=== PATIENT | male | born 1970 | race Caucasian/White ===

== ENCOUNTER 2020-10-02 20:52 | Inpatient (IN) | payer BC, SELFPAY ==
[2020-10-02 20:58] VITALS: BP 137/97; PULSE 80; RESP 18; O2SAT 98; BMI 35.7
[2020-10-02 21:33] LABS: Basophils % 0.5 %; Eosinophils # 0.3 10^3/uL (0.0-0.8); Eosinophils % 4.5 %; Hematocrit 46.2 % (42.0-52.0); Hemoglobin 16.1 g/dL (11.7-16.6); Lymphocytes # 2.3 10^3/uL (0.8-4.8); Lymphocytes % 35.2 %; Mean Corpuscular HGB Conc 34.8 g/dL (30.0-36.0); Mean Corpuscular Hemoglobin 31.1 pg (28.0-34.0); Mean Corpuscular Volume 89.2 fL (80-94); Mean Platelet Volume 10.3 fL (7.4-10.4); Monocytes # 0.6 10^3/uL (0.2-0.9); Neutrophils # 3.27 10^3/uL (1.8-7.7); Neutrophils % 50.5 %; Nucleated Red Blood Cells % 0 %; Platelet Count 207 10^3/cmm (130-400); Red Blood Count 5.18 10^6/uL (4.1-5.3); White Blood Count 6.5 10^3/uL (4.0-10.0)
[2020-10-02 21:55] LABS: Alanine Aminotransferase 34 U/L (0-41); Albumin Level 4.7 g/dL (3.5-5.2); Alcohol Level 173 mg/dL (0-10); Alkaline Phosphatase 62 IU/L (40-130); Aspartate Amino Transferase 26 U/L (0-40); Blood Urea Nitrogen 17 mg/dL (6-20); Calcium 9.2 mg/dL (8.5-10.5); Carbon Dioxide 23 mmol/L (22-29); Chloride 103 mmol/L (98-107); Globulin 2.5 g/dL (1.3-4.6); Glomerular Filtration Rate 90.1 mL/min (90-130); Glucose 113 mg/dL (65-115); Osmolality Calculated 288 mOsm/kg (285-295); Sodium 138 mmol/L (136-145); Total Bilirubin 0.4 mg/dL (0.15-1.2); Total Protein 7.2 g/dL (6.6-8.7)
[2020-10-02 21:56] LABS: Acetaminophen < 5.0 ug/mL (10-30); Salicylate < 0.3 mg/dL (3-10)
[2020-10-02 22:14] LABS: Add Urine Microscopic? YES; Bacteria Urine TRACE /hpf; Bilirubin Urine Neg (Negative); Blood Urine 2+ (Negative); Glucose Urine UA Norm (Normal); Ketones Urine Negative (Negative); Leukocyte Esterase Urine Negative (Negative); Nitrate Urine Negative (Negative); Protein Urine Neg (Negative); RBC Urine 0-4 /hpf (0-2); Squamous Epithelial Cell Urine 0-4 /hpf (0-5); Urine Appearance Clear (CLEAR); Urine Color Yellow (Yellow); Urobilinogen Urine Norm (Negative); WBC Urine 0-4 /hpf (0-5); pH Urine 5 (5-7)
[2020-10-02 22:18] LABS: Amphetamines Screen Urine Negative (Negative); Barbiturates Screen Urine Negative (Negative); Benzodiazepines Screen Urine Negative (Negative); Cocaine Screen Urine Negative (Negative); Opiate Screen Urine Negative (Negative); PCP Screen Urine Negative (Negative); THC Screen Urine Negative (Negative)
[2020-10-02 23:04] VITALS: BP 147/87; PULSE 71; RESP 18; TEMP 36.6; O2SAT 96
[2020-10-02 23:12] VITALS: BP 150/80; PULSE 76; RESP 16; TEMP 36.6; O2SAT 99
--- NOTE | 2020-10-02 23:16 | PC.NURSE ---
PM Assessment Pt arrived to Unit on 96 hr hold. Came to ED this evening after drinking, BAL was 173. UDS is neg. Report stated Pt is SI- got drunk, was waving a gun around stating he was going to shoot himself Pt is calm and cooperative on admission to unit.
[2020-10-02] MEDS: lisinopril 20 mg Tablet PO (23:48)
[2020-10-02] MEDS: ibuprofen 800 mg tablet PO (23:48)
[2020-10-02] MEDS: atorvastatin 40 mg Tablet 80 MG PO (23:49)
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
[2020-10-03] MEDS: hyDROXYzine 25 mg Capsule 50 MG PO (01:10)
[2020-10-03] MEDS: metformin XR 500 MG Tablet PO ×2 (01:11→20:19)
[2020-10-03] MEDS: trazodone 50 mg Tablet PO ×2 (01:11→20:19)
--- NOTE | 2020-10-03 01:23 | PC.NURSE ---
Addendum entered by Keri Gutiérrez RN 10/03/20 02:00: FOLLOW UP OF PRN'S MOTRIN- DECREASED PAIN LEVEL, PT ABLE TO REST TRAZODONE- ENABLED PT TO SLEEP VISTERIL-EFFECTIVE, PT RESTING SOUNDLY. Original Note: PRN'S Given 2348 administered Motrin 800mg for a headache 7/10 on pain scale, will continue to monitor pt until end of shift. 0111 administered Trazodone 50mg for a sleeping aid, will continue to monitor pt until end of shift. 0110 administered Vistaril 50mg for anxiety, will continue to monitor pt until end of shift.
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
[2020-10-03 06:00] VITALS: BP 95/58; PULSE 67; RESP 18; TEMP 36.7; O2SAT 96
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
[2020-10-03] MEDS: ibuprofen 800 mg tablet PO ×3 (09:13→20:21)
[2020-10-03] MEDS: multivitamin therapeutic Tablet 1 TAB PO (09:13)
[2020-10-03] MEDS: PARoxetine 20 mg Tablet PO (09:13)
[2020-10-03] MEDS: buPROPion XL (24 HR) 300 mg Tablet PO (09:13)
[2020-10-03] MEDS: folic acid 1 mg Tablet PO (09:13)
[2020-10-03] MEDS: amlodipine 5 mg Tablet 2.5 MG PO (09:14)
[2020-10-03] MEDS: thiamine 100 mg Tablet PO (09:14)
[2020-10-03 14:00] VITALS: BP 99/55; PULSE 73; RESP 17; TEMP 37.1; O2SAT 96
[2020-10-03] MEDS: nicotine 2 mg Gum BUCCAL ×3 (14:54→20:58)
[2020-10-03 19:25] VITALS: BP 103/56; PULSE 80; RESP 17; TEMP 36.5; O2SAT 96
[2020-10-03] MEDS: atorvastatin 40 mg Tablet 80 MG PO (20:20)
[2020-10-03] MEDS: lisinopril 20 mg Tablet PO (20:20)
--- NOTE | 2020-10-03 21:25 | PC.NURSE ---
Addendum entered by Kerry Watts LPN 10/03/20 22:12: pt stated that he is tired and will be going to bed soon Original Note: PRN 2019 administered Trazodone 50mg PO for a sleeping aid, will continue to monitor pt until end of shift.
[2020-10-04 06:00] VITALS: BP 114/50; PULSE 72; RESP 16; TEMP 36.6; O2SAT 98
[2020-10-04] MEDS: ibuprofen 800 mg tablet PO ×3 (09:01→20:25)
[2020-10-04] MEDS: nicotine 21 mg Patch 1 PATCH TRANSDERMA (09:01)
[2020-10-04] MEDS: multivitamin therapeutic Tablet 1 TAB PO (09:01)
[2020-10-04] MEDS: folic acid 1 mg Tablet PO (09:01)
[2020-10-04] MEDS: buPROPion XL (24 HR) 300 mg Tablet PO (09:01)
[2020-10-04] MEDS: PARoxetine 20 mg Tablet PO (09:01)
[2020-10-04] MEDS: thiamine 100 mg Tablet PO (09:01)
[2020-10-04] MEDS: amlodipine 5 mg Tablet 2.5 MG PO (09:01)
--- NOTE | 2020-10-04 11:56 | P.PN_ITS ---
Subjective NPU Subjective: Interval history: Justo presents today reporting that he is getting clarity with me today and has been more able to converse about the impact of his drinking on his life. We discussed the steps he has to take to be able to regain his 's confidence and to get control of his circumstances. We discussed getting collateral information tomorrow as well as managing safety including him identifying someone that can take his gun/guns at least for a little while while he is getting back on track. We discussed discharge in the next 48 hours. Mental Status Exam MSE Comments: This is an obese white male with hospital scrubs on with adequate grooming and eye contact. No abnormal movements. Cooperative with exam in no acute distress. Speech was more normal rate and volume. Mood described as a little better, affect congruent. Thought process organized. Thought content: Patient denied suicidal or homicidal ideation, there were no delusions reported noted, he denied any auditory or visual hallucinations. Attention and concentration were intact and memory appeared reliable but none were formally tested. Alert and oriented x3. Insight and judgment is limited, but improving, impulse control is limited, but improving. Vitals/I&O/Wt Last Vital Signs Temp 97.9 F 10/04/20 06:00 Pulse 72 10/04/20 06:00 Resp 16 10/04/20 06:00 BP 114/50 10/04/20 06:00 Pulse Ox 98 10/04/20 06:00 Weight last 48 hrs Weight 106.594 kg Data NPU : 10/02/20 21:25 10/02/20 21:25 A&P Additional A&P Information (1) Suicidal ideation: (2) Depression: (3) Alcohol dependence: (4) Partner relational problem: Additional A&P Information This is a 50-year-old white male with a long history of addiction and mental health issues with active alcohol dependence who presents with a 96-hour hold after reportedly endorsing suicidal thoughts in the family. 1. Continue current medication. We will increase Paxil to 30 mg p.o. every morning and initiate naltrexone with a possible plan for Vivitrol injection. 2. Continue every 15 minute checks for safety. 3. Encourage individual, group and milieu therapies. 4. Encourage sober living treatment after discharge at the highest level of care to which he is willing to commit. 5. We will evaluate for safety for discharge given 96-hour hold. Involuntary Hold Information 96 Hour Hold: 96 Hour Involuntary Admission: Yes 96 Hour Hold Ending Date: 10/09/20 96 Hour Hold Ending Time: 21:20 Attestations NPU Medical Necessity Statement*: Inpatient hospitalization is medically necessary and the clinically appropriate intervention at this time. We will monitor medications and make changes as indicated. Likely length of stay 1-3 days. Coding Level of Care Code Acute Home Care Nurse for Martina Farah
[2020-10-04 14:00] VITALS: BP 153/78; PULSE 103; RESP 17; TEMP 37.1; O2SAT 93
[2020-10-04 20:10] LABS: Glucose Point of Care 236 mg/dL (70-110)
[2020-10-04 20:13] VITALS: BP 126/82; PULSE 101; RESP 18; TEMP 37.1; O2SAT 94
[2020-10-04] MEDS: metformin XR 500 MG Tablet PO (20:25)
[2020-10-04] MEDS: atorvastatin 40 mg Tablet 80 MG PO (20:25)
[2020-10-04] MEDS: lisinopril 20 mg Tablet PO (20:25)
[2020-10-04] MEDS: nicotine 2 mg Gum BUCCAL (22:00)
[2020-10-05 06:00] VITALS: BP 121/63; PULSE 82; RESP 14; TEMP 37.1; O2SAT 97
[2020-10-05 06:28] LABS: Glucose Point of Care 155 mg/dL (70-110)
[2020-10-05] MEDS: nicotine 21 mg Patch 1 PATCH TRANSDERMA (07:45)
[2020-10-05] MEDS: ibuprofen 800 mg tablet PO ×3 (08:44→19:41)
[2020-10-05] MEDS: multivitamin therapeutic Tablet 1 TAB PO (08:44)
[2020-10-05] MEDS: folic acid 1 mg Tablet PO (08:44)
[2020-10-05] MEDS: thiamine 100 mg Tablet PO (08:44)
[2020-10-05] MEDS: amlodipine 5 mg Tablet 2.5 MG PO (08:45)
[2020-10-05] MEDS: buPROPion XL (24 HR) 300 mg Tablet PO (08:45)
[2020-10-05] MEDS: PARoxetine 20 mg Tablet 30 MG PO (08:45)
[2020-10-05 11:21] LABS: Glucose Point of Care 146 mg/dL (70-110)
--- NOTE | 2020-10-05 11:33 | P.PN_ITS ---
Subjective NPU Subjective: Interval history: Justo presented today reporting that he has talked to his now and that his short conversations which were fairly anxiety provoking. He continues to be very focused on his sobriety and doing what it takes to repair his relationship. He reports that he is open to an inpatient facility and he is working with the social work team to determine what is available. We discussed discharge in the next 24 to 48 hours as well as the FMLA process. Mental Status Exam MSE Comments: This is an obese white male with hospital scrubs on with adequate grooming and eye contact. No abnormal movements. Cooperative with exam in no acute distress. Speech was more normal rate and volume. Mood described as better but anxious, affect congruent. Thought process organized. Thought content: Patient denied suicidal or homicidal ideation, there were no delusions reported noted, he denied any auditory or visual hallucinations. Attention and concentration were intact and memory appeared reliable but none were formally tested. Alert and oriented x3. Insight and judgment is improving, impulse control is limited, but improving. Vitals/I&O/Wt Last Vital Signs Temp 98.7 F 10/05/20 06:00 Pulse 82 10/05/20 06:00 Resp 14 10/05/20 06:00 BP 121/63 10/05/20 06:00 Pulse Ox 97 10/05/20 06:00 Data NPU : 10/02/20 21:25 10/02/20 21:25 A&P Additional A&P Information (1) Suicidal ideation: (2) Depression: (3) Alcohol dependence: (4) Partner relational problem: Additional A&P Information This is a 50-year-old white male with a long history of addiction and mental health issues with active alcohol dependence who presents with a 96-hour hold after reportedly endorsing suicidal thoughts in the family. 1. Continue current medication. Will discharge on naltrexone. 2. Continue every 15 minute checks for safety. 3. Encourage individual, group and milieu therapies. 4. Encourage sober living treatment after discharge at the highest level of care to which he is willing to commit. 5. We will evaluate for safety for discharge given 96-hour hold. Involuntary Hold Information 96 Hour Hold: 96 Hour Involuntary Admission: Yes 96 Hour Hold Ending Date: 10/09/20 96 Hour Hold Ending Time: 21:20 Attestations NPU Medical Necessity Statement*: Inpatient hospitalization is medically necessary and the clinically appropriate intervention at this time. We will monitor medications and make changes as indicated. Likely length of stay 1-2 days. Coding Level of Care Code Acute Cheesemaking Laborer for Martina Farah
[2020-10-05 14:00] VITALS: BP 121/63; PULSE 82; RESP 14; TEMP 37.1; O2SAT 97
[2020-10-05 16:11] LABS: Glucose Point of Care 122 mg/dL (70-110)
[2020-10-05 19:22] LABS: Glucose Point of Care 205 mg/dL (70-110)
[2020-10-05 19:36] VITALS: BP 123/74; PULSE 93; RESP 21; TEMP 36.7; O2SAT 94
[2020-10-05] MEDS: atorvastatin 40 mg Tablet 80 MG PO (19:40)
[2020-10-05] MEDS: metformin XR 500 MG Tablet PO (19:40)
[2020-10-05] MEDS: lisinopril 20 mg Tablet PO (19:41)
[2020-10-05] MEDS: nicotine 2 mg Gum BUCCAL (20:00)
[2020-10-06 06:00] VITALS: BP 106/63; PULSE 67; RESP 18; TEMP 36.8; O2SAT 95
[2020-10-06 06:12] LABS: Glucose Point of Care 137 mg/dL (70-110)
[2020-10-06] MEDS: nicotine 2 mg Gum BUCCAL (06:33)
[2020-10-06] MEDS: PARoxetine 20 mg Tablet 30 MG PO (08:32)
[2020-10-06] MEDS: folic acid 1 mg Tablet PO (08:32)
[2020-10-06] MEDS: multivitamin therapeutic Tablet 1 TAB PO (08:32)
[2020-10-06] MEDS: buPROPion XL (24 HR) 300 mg Tablet PO (08:32)
[2020-10-06] MEDS: thiamine 100 mg Tablet PO (08:32)
[2020-10-06] MEDS: amlodipine 5 mg Tablet 2.5 MG PO (08:32)
[2020-10-06] MEDS: ibuprofen 800 mg tablet PO (08:32)
[2020-10-06] MEDS: nicotine 21 mg Patch 1 PATCH TRANSDERMA (10:57)
[2020-10-06 11:04] LABS: Glucose Point of Care 138 mg/dL (70-110)
[2020-10-06 13:22] VITALS: BP 132/79; PULSE 83; RESP 17; TEMP 36.7; O2SAT 97
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
[2020-10-06 14:16] VITALS: BP 132/79; PULSE 83; RESP 17; TEMP 36.7; O2SAT 97
== END 2020-10-06 14:34 | disposition home or self-care (01) | DRG 881 ==
LOC: ER 21:41 → NP 22:40
PROVIDERS: Admitting Provider Psychiatry & Neurology Psychiatry; Emergency Provider Family Medicine; PCP Family Medicine; Visit Provider Psychiatry & Neurology Psychiatry
DX: F32.9 Major depressive disorder, single episode, unspecified (principal); R45.851 Suicidal ideations; F10.229 Alcohol dependence with intoxication, unspecified; F41.9 Anxiety disorder, unspecified; F17.220 Nicotine dependence, chewing tobacco, uncomplicated; I10 Essential (primary) hypertension; E11.9 Type 2 diabetes mellitus without complications; Z79.84 Long term (current) use of oral hypoglycemic drugs; Z63.0 Problems in relationship with spouse or partner
CPT/HCPCS: 36416; 80053; 80306; 80307; 81001; 82962; 85025; 96372; 99285; J1815; J3411

== ENCOUNTER 2021-02-20 21:18 | Emergency (ER) | payer BC, SELFPAY ==
[2021-02-20 21:34] VITALS: BP 132/78; PULSE 70; RESP 18; TEMP 36.6; O2SAT 96; BMI 38.0
[2021-02-20 22:02] LABS: Hemoglobin 15.3 g/dL (11.7-16.6); Mean Corpuscular HGB Conc 34.8 g/dL (30.0-36.0); Mean Corpuscular Hemoglobin 30.5 pg (28.0-34.0); Mean Corpuscular Volume 87.6 fl (80-94); Mean Platelet Volume 10.6 fL (7.4-10.4); Platelet Count 167 10^3/cmm (130-400); Red Blood Count 5.02 10^6/uL (4.1-5.3); Red Cell Distribution Width 12.3 % (12.1-15.1); White Blood Count 6.3 10^3/uL (4.0-10.0)
--- NOTE | 2021-02-20 22:07 | ED_ITS ---
HPI - Abdominal Pain General: Chief Complaint: Abdominal Pain Stated Complaint: Lower L Side Stabbing Pain Time Seen by Provider: 02/20/21 21:49 Source: patient Mode of arrival: ambulatory Limitations: no limitations History of Present Illness: HPI narrative: 50-year-old male states he has been having left lower quadrant abdominal pain over the last 6 months. States its been worsening and his pain is currently a 5 out of 10. He denies any worsening improving factors. He states that he saw his PCP and was told it could be gas he is not had any imaging. Denies any fever. Denies any dysuria. Denies any vomiting or diarrhea. Associated Symptoms: Denies chills, dysuria and fever(s) Review of Systems Const: Denies: fever(s), chills, body aches or change in appetite Eyes: Denies: blurry vision or eye discomfort ENMT: Denies: throat pain or dental pain Card: Denies: chest pain Resp: Denies: dyspnea GI: Reports: abdominal pain : Denies: dysuria Musc: Denies: neck pain or back pain Skin/Breast: Denies: rash Neuro: Denies: headache(s) Psych: Denies: depression Chivo/Lymph: Denies: easy bruising All/Imm: Denies: urticaria Physical Exam Const: COMMON NORMALS: no acute distress, patient oriented x3 and healthy appearing HENMT: COMMON NORMALS: normocephalic and atraumatic HEAD & SCALP: normocephalic and atraumatic Eye: COMMON NORMALS: Equal, round and reactive pupils present and EOMs intact bilaterally PUPIL: Yes Equal, round and reactive pupils present Neck/C-Spine: COMMON NORMALS: full ROM and supple Chest: COMMONS NORMALS: normal inspection of the chest and normal palpation of entire chest wall Resp: COMMON NORMALS: normal respiratory effort, No retractions, No use of accessory muscles and clear to auscultation bilaterally AUSCULTATION: clear to auscultation bilaterally Cardio: COMMON NORMALS: regular rate, regular rhythm and No murmurs present (Cardio) RATE: regular rate RHYTHM: regular rhythm GI: COMMON NORMALS: Normal to inspection, nondistended, normoactive bowel sounds present, Soft to palpation and no masses PALPATION: Yes Soft to palpat ion and Yes Tenderness to palpation present (GI) Details: LLQ Extremity: COMMON NORMALS: normal to inspection and full ROM Neuro: COMMON NORMALS: patient oriented x3, moves all extremities and no focal motor deficits Psych: COMMON NORMALS: mental status grossly normal, Normal thought process present and cooperative THOUGHT PROCESS: Normal thought process present Skin: COMMON NORMALS: no rashes or lesions noted and no wounds GENERAL SKIN EXAM: no rashes or lesions noted Course Vital Signs: Vital signs: Vital Signs Temperature 98.4 F 02/21/21 00:03 Pulse Rate 71 02/21/21 00:03 Respiratory Rate 22 H 02/21/21 00:03 Blood Pressure 131/84 02/21/21 00:03 Pulse Oximetry 92 02/21/21 00:03 MDM - Abdominal Pain MDM Narrative: Medical decision making narrative: Patient presents here with the pain is been going on for months. Patient CT scan here shows no acute findings. Patient is stable for discharge and is to follow-up PCP and return if worsening. Lab Data: Labs: Lab Results 02/20/21 02/20/21 02/20/21 21:24 21:29 21:29 WBC 6.3 10^3/uL 10^3/ uL (4.0-10.0) RBC 5.02 10^6/uL 10^6 /uL (4.1-5.3) Hgb 15.3 g/dL g/dL (11.7-16.6) Hct 44.0 % % (42.0-52.0) MCV 87.6 fl fl (80-94) MCH 30.5 pg pg (28.0-34.0) MCHC 34.8 g/dL g/dL (30.0-36.0) RDW 12.3 % % (12.1-15.1) Plt Count 167 10^3/cmm 10^3 /cmm (130-400) MPV 10.6 fL H fL (7.4-10.4) Total Counted 100 (0-100) Atypical Lymphs % 0.0 % % (0-5) Absolute Neutrophi ls 3.3 10^3/cmm 10^3 /cmm (1.4-6.5) Segmented Neutroph ils 53 % % Abs Segm Neuts (Ma n) 3.3 10/cmm 10/cmm (1.6-7.1) Band Neutrophils 0.0 % % Abs Band Neuts (Ma n) 0.0 10^3/cmm 10^3 /cmm (0.0-1.2) Absolute Lymphocyt es 2.7 10^3/cmm 10^3 /cmm (1.2-3.4) Lymphocytes (Manua l) 43 % % Monocytes (Manual) 3.0 % % Absolute Monocytes 0.2 10^3/cmm 10^3 /cmm (0.1-0.6) Eosinophils (Manua l) 0 % % Absolute Eosinophi ls 0.0 10^3/cmm 10^3 /cmm (0.0-0.7) Basophils (Manual) 1.0 % % Absolute Basophils 0.1 10^3/cmm 10^3 /cmm (0.0-0.2) Platelet Estimate Normal (Normal) Sodium 139 mmol/L mmol/L (136-145) Potassium 3.6 mmol/L mmol/L (3.5-5.1) Chloride 104 mmol/L mmol/L (98-107) Carbon Dioxide 23 mmol/L mmol/L (22-29) Anion Gap 15.6 (5-19) BUN 18 mg/dL mg/dL (6-20) Creatinine 0.8 mg/dL mg/dL (0.7-1.2) GFR Calculation 103.2 mL/min mL/m in (90-130) Glucose 169 mg/dL H mg/dL (65-115) Calculated Osmolal ity 294 mOsm/kg mOsm/ kg (285-295) Calcium 9.1 mg/dL mg/dL (8.5-10.5) Total Bilirubin 0.5 mg/dL mg/dL (0.15-1.2) AST 27 U/L U/L (0-40) ALT 39 U/L U/L (0-41) Alkaline Phosphata se 68 IU/L IU/L (40-130) Total Protein 6.8 g/dL g/dL (6.6-8.7) Albumin 4.4 g/dL g/dL (3.5-5.2) Globulin 2.4 g/dL g/dL (1.3-4.6) Lipase 66 U/L H U/L (13-60) Imaging Data ^: CT Abd/Pel: Attestation: I personally reviewed and interpreted this imaging study as follows: Radiologist's impression: [address] [place] [address] CT Scan Report Signed Patient: Justo Gastelum Unit #: [id number] : [id number] Age/Sex: 50 / M ADM Date: 02/20/21 Loc: ER Room/Bed: Attending Dr: Ordering Provider/Ordering MD: Cristy Yeh MD Date of Service: 02/20/21 Procedure(s): CT abdomen pelvis w con* [id number] Accession Number(s): [id number] Report Number: [id number] PROCEDURE INFORMATION: Exam: CT Abdomen And Pelvis With Contrast Exam date and time: 02/20/2021 10:06 PM Age: 50 years old Clinical indication: Abdominal pain; Localized; Left lower quadrant (llq); Patient HX: C/O llq abd pain x 6 mos TECHNIQUE: Imaging protocol: Computed tomography of the abdomen and pelvis with contrast. Radiation optimization: All CT scans at this facility use at least one of these dose optimization techniques: automated exposure control; mA and/or kV adjustment per patient size (includes targeted exams where dose is matched to clinical indication); or iterative reconstruction. Contrast material: OMNI 300; Contrast volume: 95 ml; Contrast route: INTRAVENOUS (IV); COMPARISON: [facility] [place] Ribs LEFT w Chest 1v 03/18/2019 5:48 PM RADIATION DOSE METRICS: Total DLP (mGy-cm): 3462.39 FINDINGS: Liver: There is hypoattenuation of the hepatic parenchyma compatible with fatty infiltration. Gallbladder and bile ducts: Normal. No calcified stones. No ductal dilation. Pancreas: Normal. No ductal dilation. Spleen: Normal. No splenomegaly. Adrenal glands: Normal. No mass. Kidneys and ureters: There is a 2.9 cm simple appearing cyst seen in the upper pole of the left kidney. Stomach and bowel: There are few nondilated small bowel loops containing fluid and a few air-fluid levels, findings could represent mild ileus. Appendix: The appendix is visualized and is normal in configuration. Intraperitoneal space: Unremarkable. No free air. No significant fluid collection. Vasculature: Unremarkable. No abdominal aortic aneurysm. Lymph nodes: Unremarkable. No enlarged lymph nodes. Urinary bladder: Unremarkable as visualized. Reproductive: Unremarkable as visualized. Bones/joints: Severe loss of disc height and vacuum disc phenomenon is seen at L5-S1 compatible with degenerative disc disease. Soft tissues: Unremarkable. CT/CT abdomen pelvis w con* [id number] IMPRESSION: 1. There are a few nondilated small bowel loops per present containing fluid and air fluid levels, findings that may represent mild ileus. 2. Fatty infiltration of the liver 3. Simple left renal cyst measuring 2.9 cm. No further workup needed. 4. Normal appendix COMMENTS: Consistent with the [employer]'s Incidental Findings Committee white paper (J Am Yvette Radiol 2018): Any incidental renal lesion less than 1 cm or classified as too small to characterize, or any incidental cystic renal lesion characterized as simple-appearing, is likely benign. No follow-up imaging is recommended for these lesions per consensus recommendations based on imaging criteria. Radiation Dose CTDIVOL = (mGy): DLP = 3462.39 (mGy-cm) Dictated By: Mark Finnegan MD Signed By: Mark Finnegan MD Signed Date/Time: 02/21/2134 DD/ 05 Discharge Plan Discharge Patient Disposition: Home Clinical Impression: Abdominal pain Qualifiers: Abdominal location: generalized Qualified Code(s): R10.84 - Generalized abdominal pain Condition: Stable Prescriptions: No Action lisinopril 20 mg tablet 20 mg PO BEDTIME RF: 0 rosuvastatin 20 mg tablet 20 mg PO BEDTIME RF: 0 bupropion HCl 300 mg tablet extended release 24 hr 300 mg PO DAILY RF: 0 amlodipine 2.5 mg tablet 2.5 mg PO DAILY RF: 0 metformin 500 mg tablet extended release 24 hr 500 mg PO BEDTIME RF: 0 paroxetine HCl 20 mg Tablet 30 mg PO DAILY 30 Days Qty: 45 RF: 1 Vitamin B-1 (mononitrate) 100 mg Tablet 100 mg PO DAILY 30 Days Qty: 30 RF: 1 naltrexone 50 mg tablet 50 mg PO DAILY 30 Days Qty: 30 RF: 1 Discharge Orders: Discharge ED (Routine); Ordered 02/21/21 Ordered By: Cristy Yeh Discharge Diet: Advance as tolerated Discharge Activity: Resume usual activity Patient Instructions: Abdominal Pain (ED) Coding Level of Care Code ED Bed Laster for Chg Fwd Exam Comprehensive
[2021-02-20 22:20] VITALS: BP 131/83; PULSE 87; RESP 16; O2SAT 98
[2021-02-20 22:25] LABS: Alanine Aminotransferase 39 U/L (0-41); Albumin Level 4.4 g/dL (3.5-5.2); Alkaline Phosphatase 68 IU/L (40-130); Anion Gap 15.6 (5-19); Aspartate Amino Transferase 27 U/L (0-40); Blood Urea Nitrogen 18 mg/dL (6-20); Calcium 9.1 mg/dL (8.5-10.5); Carbon Dioxide 23 mmol/L (22-29); Chloride 104 mmol/L (98-107); Globulin 2.4 g/dL (1.3-4.6); Glomerular Filtration Rate 103.2 mL/min (90-130); Glucose 169 mg/dL (65-115); Osmolality Calculated 294 mOsm/kg (285-295); Potassium 3.6 mmol/L (3.5-5.1); Sodium 139 mmol/L (136-145); Total Bilirubin 0.5 mg/dL (0.15-1.2); Total Protein 6.8 g/dL (6.6-8.7)
[2021-02-20 22:39] LABS: Lipase 66 U/L (13-60)
[2021-02-20 22:41] LABS: Total Cells Counted 100 (0-100)
[2021-02-20 22:42] LABS: Absolute Neutrophil 3.3 10^3/cmm (1.4-6.5); Absolute Segmented Neutrophil 3.3 10/cmm (1.6-7.1); Basophils Absolute 0.1 10^3/cmm (0.0-0.2); Eosinophils 0 %; Lymphocytes 43 %; Lymphocytes Absolute 2.7 10^3/cmm (1.2-3.4); Monocytes Absolute 0.2 10^3/cmm (0.1-0.6); Platelet Estimate Normal (Normal); Segmented Neutrophils 53 %
[2021-02-20 22:46] VITALS: BP 113/56; PULSE 84; O2SAT 98
[2021-02-20] MEDS: iohexol 300 mg/mL 100 mL Btl IV (23:16)
[2021-02-21 00:03] VITALS: BP 131/84; PULSE 71; RESP 22; TEMP 36.9; O2SAT 92
[2021-02-21 00:50] VITALS: BP 115/77; PULSE 68; RESP 15; O2SAT 95
== END 2021-02-21 00:51 | disposition home or self-care (01) ==
PROVIDERS: Emergency Provider Emergency Medicine
DX: R10.84 Generalized abdominal pain (principal); Z79.84 Long term (current) use of oral hypoglycemic drugs
CPT/HCPCS: 74177; 80053; 83690; 85007; 85027; 99283; Q9967

== ENCOUNTER 2022-08-05 07:32 | Outpatient (CLI) | payer BC, SELFPAY ==
--- NOTE | 2022-08-05 | XR_ITS ---
WS: [id number] XR chest 2V* [id number] REASON FOR EXAM: COUGH FINDINGS: The chest is unchanged compared to 03/18/2019. Thoracic aorta and mediastinum are within normal limits. Normal heart size. Calcified granulomatous disease in both hemithoraces. No active pulmonary parenchymal or pleural disease. Old healed left rib fractures. Significant degenerative spondylosis in the mid and lower thoracic spine. XR/XR chest 2V* [id number] IMPRESSION: No acute chest abnormality.
== END 2022-08-08 07:29 | disposition home or self-care (01) ==
LOC: RAD 08-08 07:33 → RADOUTREAD 08-08 07:36
PROVIDERS: Visit Provider Family Medicine
DX: R05.9 Cough, unspecified (principal)
CPT/HCPCS: 71046